=== PATIENT | male | born 1955 | race Hispanic/Latino ===

== ENCOUNTER 2022-01-19 06:22 | Day surgery (SDC) | payer OTHER ==
[2022-01-19] MEDS ORDERED: Ringers Lactate 1,000 ML IV ONE (06:40)
[2022-01-19] MEDS ORDERED: LIDOCAINE 1% MPF 2 ML AMPULE ONE (07:32)
[2022-01-19] MEDS ORDERED: propofoL 200 MG/20 ML VIAL IV ONE (07:32)
--- NOTE | 2022-01-19 08:03 | ENDO RPT ---
[address], [address] COLONOSCOPY PROCEDURE REPORT EXAM DATE: 01/19/2022 PATIENT NAME: Lamar Hinton MR #: [id number] BIRTHDATE: 1955 ATTENDING: Fabio Poole MD STATUS: outpatient MANAGER COUNCIL: Brando Santizo CST and Marybel Shaikh RN INDICATIONS: The patient is a 66 yr old Male here for a colonoscopy due to personal history of colon polyps PROCEDURE PERFORMED: Colonoscopy with biopsy - cold polypectomy MEDICATIONS: Per Anesthesia. ESTIMATED BLOOD LOSS: None CONSENT: The patient understands the risks and benefits of the procedure and understands that these risks include, but are not limited to: sedation, allergic reaction, infection, perforation and/or bleeding. Alternative means of evaluation and treatment include, among others: physical exam, x-rays, and/or surgical intervention. The patient elects to proceed with this endoscopic procedure. DESCRIPTION OF PROCEDURE: During intra-op preparation period all mechanical medical equipment was checked for proper function. Hand hygiene and appropriate measures for infection prevention was taken. Procedure, possible complications, alternatives including, but not limited to possibility of bleeding, perforation, tear, infection, sepsis, need for surgery, need for blood transfusion, were explained to the patient. After the risks, benefits and alternatives of the procedure were thoroughly explained, Informed consent was verified, confirmed and timeout was successfully executed by the treatment team. The patient was placed in the left lateral position. A digital rectal exam was performed and revealed external hemorrhoids. After appropriate level of anesthesia, the scope was passed. The EC-[id number] ([id number]) endoscope was introduced through the anus and advanced to the cecum, which was identified by transillumination from the light source, the appendix, and the ileocecal valve. The quality of the prep was good. The instrument was then slowly withdrawn as the colon was fully examined. Scope withdrawal time was . COLON FINDINGS: Small internal and external hemorrhoids were found. A sessile polyp was found at approximately 90 cm from anal verge less than 0.3 cm in size. Retroflexed views revealed no abnormalities. The scope was then completely withdrawn from the patient and the procedure terminated. ADVERSE EVENTS: There were no complications. IMPRESSIONS: 1. Small internal and external hemorrhoids 2. Sessile polyp was found RECOMMENDATIONS: 1. await biopsy results 2. follow-up: office 1 week(s) RECALL: for Colonoscopy, pending biopsy results. Fabio Poole MD eSigned: Fabio Poole MD 01/19/2022 8:02 AM cc: Frances Vásquez CPT CODES: ICD9 CODES: PATIENT NAME: Lamar Hinton MR#: [id number]
[2022-01-19 09:04] VITALS: BP 95/56; TEMP 96.9; O2SAT 96
== END 2022-01-19 08:57 | disposition home or self-care (01) ==
LOC: OR 06:22
PROVIDERS: ATTEND Surgery
PROC: 0DBK8ZX Excision of Ascending Colon, Via Natural or Artificial Opening Endoscopic, Diagnostic (ICD-10-PCS; principal; 2022-01-19 07:30)
DX: Z86.010 Personal history of colon polyps (principal); Z20.822 Contact with and (suspected) exposure to COVID-19; D12.2 Benign neoplasm of ascending colon; K64.4 Residual hemorrhoidal skin tags; K64.8 Other hemorrhoids; I10 Essential (primary) hypertension; I48.91 Unspecified atrial fibrillation
CPT/HCPCS: 88305; 45380; U0003; J2704; J7120

== ENCOUNTER 2023-04-26 09:18 | Observation (INO) | payer OTHER ==
[2023-04-20 14:08] LABS: Hematocrit 45.9 % (39.6-49.0); MCV 91.7 fL (80-100); MPV 8.3 fL (7.6-11.3); Platelets 266 thou/uL (152-406)
[2023-04-20 14:10] LABS: Protime INR 1.2
[2023-04-20 14:11] LABS: Potassium 4.2 mEq/L (3.5-5.1)
--- NOTE | 2023-04-20 14:14 | RAD REPORT ---
EXAM DESCRIPTION: Wai Horton (2 Views)04/20/2023 1:46 pm CLINICAL HISTORY: Preop for knee arthroplasty. Hypertension COMPARISON: 2013 FINDINGS: The lungs appear clear of acute infiltrate. The heart is normal size IMPRESSION: No acute abnormalities displayed
[2023-04-26] MEDS ORDERED: CEFAZOLIN SODIUM 2 GM/VIAL ONE (09:49)
[2023-04-26] MEDS ORDERED: CELECOXIB 100 MG CAPSULE ONE (09:49)
[2023-04-26] MEDS ORDERED: GABAPENTIN 100 MG CAP ONE (09:50)
[2023-04-26] MEDS ORDERED: Oxycodone HCl/Acetaminophen 1 TAB TAB ONE (09:50)
[2023-04-26] MEDS ORDERED: ACETAMINOPHEN 500 MG TAB ONE (09:51)
[2023-04-26] MEDS ORDERED: Ringers Lactate 1,000 ML IV ONE (09:51)
[2023-04-26] MEDS ORDERED: LIDOCAINE 1% MPF 5 ML VIAL ONE (10:25)
[2023-04-26] MEDS ORDERED: EPINEPHRINE/PF 1 MG/ML AMP ONE (10:25)
[2023-04-26] MEDS ORDERED: BUPIVACAINE 0.25% PF 30 ML VIAL ONE (10:25)
[2023-04-26] MEDS ORDERED: MIDAZOLAM HCL 2 MG/2 ML INJ ONE (10:25)
[2023-04-26] MEDS ORDERED: dexAMETHasone 10 MG/ML VIAL ONE ×2 (10:25→12:03)
[2023-04-26] MEDS ORDERED: FENTANYL CITR 100 MCG/2 ML ONE (10:25)
[2023-04-26] MEDS ORDERED: TRANEXAMIC ACID 1,000 MG/10 ML VIAL IV ONE (11:15)
[2023-04-26] MEDS ORDERED: DEXMEDETOMIDINE HCL 200 MCG/2 ML VIAL ONE (11:59)
[2023-04-26] MEDS ORDERED: MAGNESIUM SULFATE 1 gm IVPB 1 GM/100 ML BAG IV ONE (12:00)
[2023-04-26] MEDS ORDERED: propofoL 200 MG/20 ML VIAL IV ONE (12:02)
[2023-04-26] MEDS ORDERED: KETOROLAC 30 MG/ML INJ ONE (12:03)
[2023-04-26] MEDS ORDERED: LIDOCAINE 2% MPF 5 ML VIAL ONE ×2 (12:03→12:21)
[2023-04-26] MEDS ORDERED: ONDANSETRON 4 MG/2 ML VIAL ONE (12:03)
[2023-04-26] MEDS ORDERED: NS 0.9% VIAL 20 ML ONE (12:18)
[2023-04-26] MEDS ORDERED: KETAMINE HCL IN 0.9 % NACL 50 MG/5 ML SYRINGE IV ONE (12:21)
[2023-04-26] MEDS: BUPIVACAINE 0.5% PF 10 ML VIAL ONE ×2 (12:44→13:50)
[2023-04-26] MEDS ORDERED: NS 0.9% VIAL 10 ML ONE ×3 (12:50→14:13)
[2023-04-26] MEDS ORDERED: Phenylephrine HCl 10 MG/ML 1 ML VIAL ONE (14:11)
--- NOTE | 2023-04-26 14:36 | P.BOP ---
Preoperative diagnosis: right knee osteoarthritis Postoperative diagnosis: same Primary procedure: right total knee arthroplasty Van Owner Operator: NONE,NONE Estimated blood loss: 50 cc Specimen: right knee bone remnants Findings: see dictation Anesthesia: General Complications: None Implants: Biomet Yelitza Persona 11 CR femur, H tibia, 10 CR poly, 32 patella Fluids & blood products: per anesthesia record; TT: 90 mins @ 300 mmHg Transferred to: Recovery Room Condition: Good
[2023-04-26] MEDS ORDERED: ACETAMINOPHEN 325 MG TABLET PO PRN (14:37)
[2023-04-26] MEDS ORDERED: ONDANSETRON 4 MG/2 ML VIAL IV PRN (14:37)
[2023-04-26] MEDS ORDERED: DOCUSATE NA 100 MG CAP PO PRN (14:37)
[2023-04-26] MEDS ORDERED: TRAMADOL HCL 50 MG TAB PO PRN (14:45)
[2023-04-26] MEDS ORDERED: HYDROMORPHONE HCL 1 MG/ML INJ ONE (15:08)
[2023-04-26 15:22] LABS: Hematocrit 44.4 % (39.6-49.0)
[2023-04-26 16:00] VITALS: O2SAT 100
--- NOTE | 2023-04-26 16:07 | RAD REPORT ---
EXAM DESCRIPTION: RAD - Knee Right 2 View - 04/26/2023 3:26 pm CLINICAL HISTORY: Right knee surgery FINDINGS: Postoperative changes right knee arthroplasty. The prosthesis is in good position. No fracture or dislocation
[2023-04-26 16:22] VITALS: BMI 31.1
[2023-04-26] MEDS: CEFAZOLIN SODIUM 2 GM in NA CHLORIDE 0.9% 100 ML IVPB SCH (16:43)
--- NOTE | 2023-04-26 16:55 | P.CNS ---
Allergies No Known Allergies Allergy (Verified 04/20/23 13:15) Home Medications: Amlodipine Besylate/Benazepril [Lotrel 10-40 mg Capsule] 1 each PO DAILY 01/17/22 Apixaban [Eliquis] 5 mg PO BID 01/17/22 Lactobacillus Acidophilus [Probiotic] 1 each PO DAILY 01/17/22 Metoprolol Succinate [Toprol Xl] 50 mg PO BID 01/17/22 Simvastatin 10 mg PO DAILY 01/17/22 Cetirizine HCl [Zyrtec] 10 mg PO DAILY 04/20/23 Flaxseed Oil 1,000 mg PO DAILY 04/20/23 Magnesium [Magnesium Gluconate] 200 mg PO DAILY 04/20/23 Multivit-Min/FA/Lycopen/Lutein [Centrum Silver Tablet] 1 each PO DAILY 04/20/23 - Past Medical/Surgical History Diabetic: No -: atrial fibrillation -: hypertension -: arthritis -: left knee arthroplasty -: cholecystectomy -: left apa 2001 - Family History Father Medical History: Heart disease, Cancer, Other (see notes) Notes: colon cancer, prostate cancer Mother Medical History: Other (see notes) Notes: glaucoma - Social History Alcohol use: No CD- Drugs: No Caffeine use: No Place of Residence: Home Physical Examination Temp Pulse Resp BP Pulse Ox 97.6 F 78 16 103/64 97 04/26/23 16:00 04/26/23 16:00 04/26/23 16:00 04/26/23 16:00 04/26/23 16:00 Laboratory Data (last 24 hrs) 04/26/23 15:16 Hgb 14.9 Hct 44.4
[2023-04-26 17:40] LABS: Phosphorus 3.8 mg/dL (2.5-4.9)
[2023-04-26 17:41] LABS: Magnesium 2.3 mg/dL (1.6-2.4)
[2023-04-26] MEDS: SOTALOL HCL 80 MG TAB PO SCH ×2 (18:00→18:03)
--- NOTE | 2023-04-26 18:52 | CON ---
Date of Consultation: 04/26/2023 Reason For Consultation: Atrial fibrillation. History Of Present Illness: This is a 67-year-old male with history of atrial fibrillation, hyperten claudia, severe osteoarthritis, status post right total knee replacement. I saw him in the office olayinka perez and he has been having multiple episodes with rapid ventricular response and we planned to initia te sotalol on him. Denies having any chest pain or shortness of breath. Past Medical History: As outlined above in the HPI. Medications: Refer to reconciliation sheet for detailed list. Allergies: NO KNOWN DRUG ALLERGIES. Family History: No premature coronary artery disease or cancer. Social History: Does not smoke or drink. Does not use any drugs. Review of Systems: All systems were reviewed. They were negative except what mentioned in HPI. Physical Examination: Vital signs: Reviewed. Head and Neck: Pupils are equal, reactive to light. Intact eye movements. No JVD. No cervical lym phadenopathy. Neck is supple. Thyroid is not enlarged. Lungs: Clear to auscultation bilaterally. No rhonchi, wheezing, or crackles. No accessory muscle u se. Heart: Irregularly irregular. No extra sounds. Abdomen: Soft, nontender. Bowel sounds positive. No organomegaly. No masses or hernia. No rigidi ty or rebound. Extremities: No edema, clubbing, or cyanosis. Intact pulses. Skin: No rash. No nodule. Neurological: Alert, awake, oriented x3. No acute focal deficits appreciated. Investigations: Labs were reviewed. Assessment And Recommendations: 1.Atrial fibrillation. Start sotalol 80 mg twice a day, start now, after the third dose to get an E KG. If no QTc abnormalities, to be continued on this dose. 2.Dyslipidemia. Continue statin. 3.Hypertension. Blood pressure is controlled. 4.For stroke prevention, he will continue on Eliquis. SR/MODL Voice ID: [id number] Report ID: [id number]
--- NOTE | 2023-04-26 20:10 | P.HP ---
Certification for Inpatient Patient admitted to: Observation With expected LOS: <2 Midnights Patient will require the following post-hospital care: None Practitioner: I am a practitioner with admitting privileges, knowledge of patient current condition, hospital course, and medical plan of care. Services: Services provided to patient in accordance with Admission requirements found in Title 42 Section 412.3 of the Code of Federal Regulations Patient History Date of Service: 04/26/23 Reason for admission: Right knee osteoarthritis. History of Present Illness: Patient is a 67-year-old male with a past medical history significant for A-fib, hypertension, osteoarthritis, hyperlipidemia who presents for a planned procedure with his orthopedic surgeon--right total knee replacement. Patient had a left knee replacement a couple of years ago. Patient reported that he has been having pain in his right knee for quite some time now. Patient reported that he has not been taking any pain medication but has been managing his pain with non-pharmacological techniques. Patient presented to the hospital and had a right knee replacement. Patient tolerated procedure. Patient resting in bed comfortably. Allergies No Known Allergies Allergy (Verified 04/20/23 13:15) Home Medications: Amlodipine Besylate/Benazepril [Lotrel 10-40 mg Capsule] 1 each PO DAILY 01/17/22 Apixaban [Eliquis] 5 mg PO BID 01/17/22 Lactobacillus Acidophilus [Probiotic] 1 each PO DAILY 01/17/22 Metoprolol Succinate [Toprol Xl] 50 mg PO BID 01/17/22 Simvastatin 10 mg PO DAILY 01/17/22 Cetirizine HCl [Zyrtec] 10 mg PO DAILY 04/20/23 Flaxseed Oil 1,000 mg PO DAILY 04/20/23 Magnesium [Magnesium Gluconate] 200 mg PO DAILY 04/20/23 Multivit-Min/FA/Lycopen/Lutein [Centrum Silver Tablet] 1 each PO DAILY 04/20/23 - Past Medical/Surgical History Has patient received pneumonia vaccine in the past: Yes Diabetic: No -: atrial fibrillation -: hypertension -: arthritis -: left knee arthroplasty -: cholecystectomy -: left apa 2001 - Family History Father -: Heart disease, Cancer, Other (see notes) Notes: colon cancer, prostate cancer Mother -: Other (see notes) Notes: glaucoma - Social History Smoking Status: Never smoker Alcohol use: No CD- Drugs: No Caffeine use: No Place of Residence: Home Review of Systems General: Unremarkable Eyes: Unremarkable ENT: Unremarkable Respiratory: Unremarkable Cardiovascular: Unremarkable Gastrointestinal: Unremarkable Genitourinary: Unremarkable Musculoskeletal: Other (Right knee pain ) Integumentary: Unremarkable Neurological: Unremarkable Lymphatics: Unremarkable Physical Examination - Vital Signs Temperature: 97.6 F Blood Pressure: 103/64 Pulse: 78 Respirations: 16 Pulse Ox (%): 97 - Physical Exam General: Alert, In no apparent distress, Oriented x3, Cooperative HEENT: Atraumatic, PERRLA, Mucous membr. moist/pink, EOMI, Sclerae nonicteric Neck: Supple, 2+ carotid pulse no bruit, No LAD, Without JVD or thyroid abnormality Respiratory: Clear to auscultation bilaterally, Normal air movement Cardiovascular: No edema, Regular rate/rhythm, Normal S1 S2 Capillary refill: <2 Seconds Gastrointestinal: Normal bowel sounds, Soft and benign, No tenderness Musculoskeletal: No clubbing, No tenderness Integumentary: No rashes, Other (Right knee incision ) Neurological: Normal speech, Normal tone, Normal affect Lymphatics: No axilla or inguinal lymphadenopathy - Studies Laboratory Data (last 24 hrs) 04/26/23 04/26/23 17:07 15:16 Hgb 14.9 Hct 44.4 Phosphorus 3.8 Magnesium 2.3 Assessment and Plan - Plan --Right knee osteoarthritis. Status post right total knee replacement. Orthopedic surgeon on board. We will await further recommendations from surgeon. --Acute pain\osteoarthritis. We will manage pain with current medication regimen. --Atrial fibrillation. Cardiology consulted for management of A-fib. Patient started on sotalol by home care rn. Continue Eliquis in AM. --Hypertension. Stable. Continue home medication. --Hyperlipidemia. Continue statin. --CKD 2. Baseline functions unknown. We will continue to monitor renal functions. --DVT prophylaxis with SCDs. Discharge Plan: Home Plan to discharge in: 48 Hours - Advance Directives Does patient have a Living Will: No Does patient have a Durable POA for Healthcare: No - Code Status/Comfort Care Code Status Assessed: Yes Physician Review: Patient Assessed, Agree with Above Assessment and Plan Critical Care: No
[2023-04-26] MEDS ORDERED: METOPROLOL XL 50 MG TAB PO SCH (21:00)
--- NOTE | 2023-04-26 21:24 | P.OP ---
Preoperative diagnosis: right knee osteoarthritis Postoperative diagnosis: same Primary procedure: right total knee arthroplasty Anesthesia: general Estimated blood loss: 50 cc Specimen: right knee bone remnants Findings: see dictation Operative Technique: Indication For Procedure: Patient is a 67 year-old male presenting to my clinic with signs, symptoms and x-ray findings consistent with severe right knee osteoarthritis. I discussed with the patient at length risks and benefits associated with operative and nonoperative treatment. He had failed conservative treatment measures and had significant difficulties with ADLs secondary to his pain. We discussed operative treatment and elected to proceed with right total knee arthroplasty. He expressed understanding and elected to proceed with operative treatment. Description Of Procedure: After informed consent was obtained, the patient was identified in the preoperative holding area. The right lower extremity was marked. The patient was then taken to the PACU where he underwent a right lower extremity adductor canal block performed by Anesthesia. He was then taken to the operating room, transferred to the operating table in supine fashion, and placed under general anesthesia. The right lower extremity was then prepped and draped in usual sterile fashion. A time-out was initiated. The correct patient and procedure were confirmed and identified. The patient did receive his preoperative prophylactic antibiotics. The right lower extremity was then exsanguinated and tourniquet was inflated to 300 mmHg. Approximately 15 cm longitudinal incision was made centered over the anterior aspect of the right knee. Dissection was then taken to the extensor mechanism and a medial parapatellar arthrotomy was performed. The patella was everted and dislocated laterally and the knee was flexed in the fat pad. Medial and lateral meniscus and ACL were all excised exposing the distal femur. Excess hypertrophic synovium was also excised within the suprapatellar pouch. The patient had an MRI of his right knee preoperatively for surgical planning and creation of cutting blocks. The cutting block was then placed over the distal femur and pins were then placed. The distal femoral cutting block was then placed over the pins. An armando wing was then used to ensure proper depth cut and the distal femur was then cut. The chamfer cutting guide was then placed over the distal end of the femur. Anterior, posterior cuts as well as anterior and posterior chamfer cuts were then made again confirming proper depth of the cut using an Armando wing. Excess bone remnants were then sent to pathology for further evaluation. Next, attention was taken to the proximal tibia. A tibial jig and tibial cutting block was then placed on proximal aspect of the right tibia and locked into position. Pins were then placed and alignment guide was then used to confirm proper alignment of the cut and then coronal and sagittal planes. Once this was confirmed, the cutting jig was placed over the pins and the proximal tibia was cut. Sizing trays were then selected and size 10 mm spacer was used and there was good overall balance in flexion and extension. Next, the trial implants were then placed using the size 11 standard CR femur and a size H tibia and an 10 mm CR poly. There was overall good range of motion and good stability. The trial implants were then removed. The wound was then irrigated thoroughly with normal saline and the knee was then injected with 30 cc of 0.5% Marcaine both in the posterior capsule and medial and lateral gutters as well as quadriceps tendon and periosteum. The tibia was then punched. The femur was drilled. The cement was then prepared on the back table. Cement was then placed first on the tibial surface followed by size H tibia. Excess cement was removed with [place] elevators. Size 11 standard CR femur was then placed on the distal femur after cement was placed on the distal femur. Excess cement was then removed and a size 10 mm CR trial poly was then placed. The knee was held in extension as the cement hardened. Undersurface of the patella was prepared debriding osteophytes using rongeurs as well as osteophytes.. Cement was placed on the undersurface of the patella after it was cut and a size 32 patella was placed. Once the cement was hardened, the knee was ranged, there was good overall stability both in flexion, extension and as well as stability with varus and valgus stresses. Trial poly was then removed and a size 10 mm CR poly was then placed and locked into position. The knee was then ranged again. There was good overall range of motion both for flexion and extension with good stability. The wound was then irrigated again thoroughly with normal saline using pulse lavage. Tourniquet was let down. Hemostasis was achieved using Bovie electrocautery. Extensor mechanism was then approximated using a #1 Vicryl both in interrupted and running fashion. The fascia was then approximated using 0 Vicryl. Subcutaneous tissue was approximated with a 2-0 Vicryl. Skin was approximated using grace. Sterile dressings were applied. The patient was awakened and transferred to PACU in stable condition. Complications: None Implants: Biomet Yelitza Persona 11 CR femur, H tibia, 10 CR poly, 32 patella Fluids & blood products: per anesthesia record; TT: 90 mins @ 300 mmHg Transferred to: Recovery Room Condition: Good
[2023-04-26] MEDS: HYDROCODONE/APAP 7.5/325 MG TAB PO PRN (23:04)
[2023-04-27] MEDS: CEFAZOLIN SODIUM 2 GM in NA CHLORIDE 0.9% 100 ML IVPB SCH ×2 (01:00→08:21)
[2023-04-27 02:26] LABS: Urine Bacteria None Seen /HPF (<20); Urine Bilirubin NEGATIVE (Negative); Urine Blood Negative (Negative); Urine Clarity Clear (Clear); Urine Color Light-Yellow (Yellow); Urine Glucose NEGATIVE (Negative); Urine Protein NEGATIVE (Negative); Urine RBC None Seen /HPF (None Seen); Urine Urobilinogen Normal (Normal); Urine pH 5.5 (5.0-7.0)
[2023-04-27] MEDS: SOTALOL HCL 80 MG TAB PO SCH ×2 (05:49→17:08)
[2023-04-27 06:55] LABS: Hematocrit 42.3 % (39.6-49.0); Lymphocytes % 6.4 % (15.3-44.8); MCV 91.4 fL (80-100); Platelets 245 thou/uL (152-406); RBC Red Blood Cell Count 4.63 M/uL (4.33-5.43)
[2023-04-27 07:24] LABS: Magnesium 2.2 mg/dL (1.6-2.4); Phosphorus 3.9 mg/dL (2.5-4.9); Potassium 4.1 mEq/L (3.5-5.1)
[2023-04-27] MEDS ORDERED: MULTIVIT W/ MINERAL TAB PO SCH (08:00)
[2023-04-27] MEDS ORDERED: LACTOBACILLUS/ACIDOPHILUS TAB PO SCH (08:00)
[2023-04-27] MEDS: HYDROCODONE/APAP 7.5/325 MG TAB PO PRN ×2 (08:20→14:35)
[2023-04-27] MEDS ORDERED: AMLODIPINE 10 MG TAB PO SCH (09:00)
[2023-04-27] MEDS ORDERED: BENAZEPRIL 20 MG TAB PO SCH (09:00)
[2023-04-27] MEDS ORDERED: CETIRIZINE HCL 5 MG TABLET PO SCH (09:00)
[2023-04-27] MEDS ORDERED: APIXABAN 5 MG TABLET PO SCH (09:00)
[2023-04-27] MEDS ORDERED: HOME MED 1 EA UNK (Magnesium [Magnesium Gluconate] 200 MG Tablet) PO SCH (09:00)
[2023-04-27] MEDS ORDERED: HOME MED 1 EA UNK (Simvastatin [Simvastatin] 10 MG Tablet) PO SCH (09:00)
[2023-04-27] MEDS ORDERED: HOME MED 1 EA UNK (Lactobacillus Acidophilus [Probiotic] Capsule) PO SCH (09:00)
[2023-04-27] MEDS ORDERED: AMLODIPINE BESYLATE PO SCH (09:00)
[2023-04-27] MEDS ORDERED: HOME MED 1 EA UNK (Cetirizine Hcl [Zyrtec] 10 MG Tablet) PO SCH (09:00)
[2023-04-27] MEDS ORDERED: BENAZEPRIL PO SCH (09:00)
[2023-04-27] MEDS ORDERED: ATORVASTATIN 10 MG TAB PO SCH (09:00)
[2023-04-27 12:14] VITALS: BP 127/78; TEMP 97.9
--- NOTE | 2023-04-27 16:13 | P.PN ---
Subjective Date of Service: 04/27/23 Chief Complaint: s/p R TKA Subjective: Working w/ PT pain controlled Physical Examination - Vital Signs Temperature: 97.9 F Blood Pressure: 127/78 Pulse: 89 Respirations: 16 Pulse Ox (%): 96 - Physical Exam General: Alert, In no apparent distress Musculoskeletal: Other (RLE: Dressing clean dry and intact; neurovascular intact distally) - Studies Laboratory Data (last 24 hrs) 04/27/23 04/27/23 04/26/23 06:30 06:30 17:07 WBC 16.30 H Hgb 14.2 Hct 42.3 Plt Count 245 Sodium 134 L Potassium 4.1 BUN 16 Creatinine 1.03 Glucose 134 H Phosphorus 3.9 3.8 Magnesium 2.2 2.3 Triglycerides 50 Cholesterol 131 HDL Cholesterol 50 Cholesterol/HDL Ratio 2.62 Assessment And Plan - Plan Cresencio is an 67-year-old male status post right total knee arthroplasty postop day #1 -Continue to mobilize with PT; weightbearing as tolerated right lower extremity -DVT prophylaxis: On Eliquis for A-fib -Patient currently getting started on sotalol by cardiology; okay for discharge from Ortho standpoint once cleared by cardiology -Follow-up in 2 weeks for staple removal
--- NOTE | 2023-04-27 19:37 | PN ---
Date of Progress Note: 04/27/2023 Subjective: Seen by bedside. Doing well, on sotalol, appears to be atrial fibrillation, but heart r ate is controlled. Review of Systems: No chest pain, shortness of breath, orthopnea, or cough. No nausea, vomiting, or diarrhea. All othe r systems were reviewed, they were negative. Objective: Vital Signs: Reviewed. Head and Neck: Pupils are equal, reactive to light. Intact eye movements. No JVD. No cervical lym phadenopathy. Neck is supple. Thyroid is not enlarged. Lungs: Clear to auscultation bilaterally. No rhonchi, wheezing, or crackles. No accessory muscle u se. Heart: Irregularly irregular. No extra sounds. Abdomen: Soft, nontender. Bowel sounds positive. No organomegaly. No masses or hernia. No rigidi ty or rebound. Extremities: No edema, clubbing, or cyanosis. Intact pulses. Skin: No rash. No nodule. Neurologic: Alert, awake, oriented x3. No acute focal deficits appreciated. Investigations: BUN 16, creatinine 1.03, and hemoglobin 14.2. Assessment And Recommendations: 1.Atrial fibrillation. Continue sotalol 80 mg b.i.d. After third dose, check EKG. If QTc interval was normal, patient can be released on sotalol and oral anticoagulant the Eliquis he is taking and t o see me in the office in 2 weeks and if he continues to be in atrial fibrillation at that time, we w ill do cardioversion. 2.Severe osteoarthritis, status post total knee replacement and he is on Eliquis, which will protect him from deep venous thrombosis. SR/MODL Voice ID: [id number] Report ID: [id number]
--- NOTE | 2023-04-28 08:15 | P.DS ---
Admission Date: 04/26/23 Discharge Date: 04/27/23 Disposition: [place] [facility]/HOME HEALTH CARE Discharge Condition: GOOD Reason for Admission: s/p R TKA Consultations: Cardiology - Dr. Williamson Ortho - Dr. Bowden Brief History of Present Illness: 67yo M, PMH: A-fib, hypertension, osteoarthritis, hyperlipidemia Patient presents for a planned procedure with his orthopedic surgeon--right total knee replacement. Patient had a left knee replacement a couple of years ago. Patient reported that he has been having pain in his right knee for quite some time now. Patient reported that he has not been taking any pain medication but has been managing his pain with non-pharmacological techniques. Patient presented to the hospital and had a right knee replacement. Patient tolerated procedure. Patient resting in bed comfortably. Hospital Course: Problem List Right knee osteoarthritis now s/p total right knee replacement 04/26 Atrial - Fibrillation, chronic Hypertension Hyperlipidemia CKD 2 Patient underwent successful total right knee replacement on 04/26 for right knee osteoarthritis by Dr. Bowden. He noted to be in afib with RVR. Cardiology, Dr. Williamson was consulted, and recommended initiating treatment with sotalol 80mg BID. Patient received his first dose post-op on evening of 04/26. He remained in afib but with better rate control, mostly in 70-80s, occasionally in 90s. Otherwise he was doing well post-operatively from his surgery and cleared for discharge from ortho perspective. He received 3 doses of sotalol. EKG was performed and noted a normal QTc interval. He was deemed stable for discharge home with home health, with new prescription for Sotalol 80mg twilce daily. Patient is to stop taking his metoprolol and take sotalol in its place. Patients blood pressure was noted to be borderline low to low-normal throughout hospitalization. Advised to check BP daily. Blood pressure remained in normal range post-operatively and his amlodipine- benazepril was held. Recommend to hold this medication until blood pressure consistently >140 systolic If blood pressure remains low, consider discussing further with Cardiology / PCP in office about possibly lowering dose / adjusting his long-term anti- hypertensives. Since his last dose adjustment, patient reports significant lifestyle changes with weight loss and cutting out alcohol. Medication: New: sotalol 80mg twice daily pain medication per Dr. Bowden continue eliquis as previously prescribed Stop: Metoprolol Follow up: PCP 3-[address] Kal Dhillon in 2 weeks for staple removal Cardiology in 1-2 weeks Physical Exam: GEN: Alert, oriented, NAD HEENT: Normal conjunctiva, sclera anicteric CV: Regular rate and rhythm, no edema Pulm: Nonlabored respirations on room air ABD: Soft, nontender, nondistended MSK: Dressing in place c/d/i Neuro: Normal speech, normal affect Vital Signs/Physical Exam: Temp Pulse Resp BP Pulse Ox 97.9 F 89 16 127/78 96 04/27/23 16:12 04/27/23 16:12 04/27/23 16:12 04/27/23 16:12 04/27/23 16:12 Laboratory Data at Discharge: WBC 16.30 thou/uL (4.3-10.9) H 04/27/23 06:30 Hgb 14.2 g/dL (13.6-17.9) 04/27/23 06:30 Hct 42.3 % (39.6-49.0) 04/27/23 06:30 Plt Count 245 thou/uL (152-406) 04/27/23 06:30 PT 13.2 SECONDS (9.5-12.5) H 04/20/23 13:30 INR 1.20 04/20/23 13:30 APTT 33.2 SECONDS (24.3-36.9) 04/20/23 13:30 Sodium 134 mEq/L (136-145) L 04/27/23 06:30 Potassium 4.1 mEq/L (3.5-5.1) 04/27/23 06:30 BUN 16 mg/dL (7-18) 04/27/23 06:30 Creatinine 1.03 mg/dL (0.70-1.30) 04/27/23 06:30 Glucose 134 mg/dL (74-106) H 04/27/23 06:30 Phosphorus 3.9 mg/dL (2.5-4.9) 04/27/23 06:30 Magnesium 2.2 mg/dL (1.6-2.4) 04/27/23 06:30 Triglycerides 50 mg/dL (<150) 04/27/23 06:30 Cholesterol 131 mg/dL (<200) 04/27/23 06:30 HDL Cholesterol 50 mg/dL (40-60) 04/27/23 06:30 Cholesterol/HDL Ratio 2.62 04/27/23 06:30 Home Medications: Amlodipine Besylate/Benazepril [Lotrel 10-40 mg Capsule] 1 each PO DAILY 01/17/22 Apixaban [Eliquis] 5 mg PO BID 01/17/22 Lactobacillus Acidophilus [Probiotic] 1 each PO DAILY 01/17/22 Simvastatin 10 mg PO DAILY 01/17/22 Cetirizine HCl [Zyrtec] 10 mg PO DAILY 04/20/23 Flaxseed Oil 1,000 mg PO DAILY 04/20/23 Magnesium [Magnesium Gluconate] 200 mg PO DAILY 04/20/23 Multivit-Min/FA/Lycopen/Lutein [Centrum Silver Tablet] 1 each PO DAILY 04/20/23 Sotalol HCl [Betapace*] 80 mg PO BID 30 Days #60 tab 04/27/23 New Medications: Sotalol HCl [Betapace*] 80 mg PO BID 30 Days #60 tab Physician Discharge Instructions: Patient underwent successful total right knee replacement on 04/26 for right knee osteoarthritis by Dr. Bowden. He noted to be in afib with RVR. Cardiology, Dr. Williamson was consulted, and recommended initiating treatment with sotalol 80mg BID. Patient received his first dose post-op on evening of 04/26. He remained in afib but with better rate control, mostly in 70-80s, occasionally in 90s. Otherwise he was doing well post-operatively from his surgery and cleared for discharge from ortho perspective. He received 3 doses of sotalol. EKG was performed and noted a normal QTc interval. He was deemed stable for discharge home with home health, with new prescription for Sotalol 80mg twilce daily. Patient is to stop taking his metoprolol and take sotalol in its place. Patients blood pressure was noted to be borderline low to low-normal throughout hospitalization. Advised to check BP daily. Blood pressure remained in normal range post-operatively and his amlodipine- benazepril was held. Recommend to hold this medication until blood pressure consistently >140 systolic If blood pressure remains low, consider discussing further with Cardiology / PCP in office about possibly lowering dose / adjusting his long-term anti- hypertensives. Since his last dose adjustment, patient reports significant lifestyle changes with weight loss and cutting out alcohol. Medication: New: sotalol 80mg twice daily pain medication per Dr. Bowden continue eliquis as previously prescribed Stop: Metoprolol Follow up: PCP 3-[address] Kal Dhillon in 2 weeks for staple removal Cardiology in 1-2 weeks Activity: Weight bearing as tolerated Followup: Kacey Vásquez, HEATHER [Primary Care Provider] - Time spent managing pt's care (in minutes): 45
== END 2023-04-27 18:33 | disposition home health service (06) ==
LOC: OR 09:18 → 4TH 15:25
PROVIDERS: ADMIT Orthopaedic Surgery Sports Medicine; ATTEND Hospitalist
PROC: 0SRC069 Replacement of Right Knee Joint with Oxidized Zirconium on Polyethylene Synthetic Substitute, Cemented, Open Approach (ICD-10-PCS; principal; 2023-04-26 11:30)
DX: M17.11 Unilateral primary osteoarthritis, right knee (principal); I48.11 Longstanding persistent atrial fibrillation; N18.2 Chronic kidney disease, stage 2 (mild); M25.561 Pain in right knee; I10 Essential (primary) hypertension; E78.5 Hyperlipidemia, unspecified; Z82.49 Family history of ischemic heart disease and other diseases of the circulatory system; Z79.01 Long term (current) use of anticoagulants; Z80.0 Family history of malignant neoplasm of digestive organs; Z80.42 Family history of malignant neoplasm of prostate
CPT/HCPCS: 36415; 71046; 80048; 80061; 81001; 82947; 83735; 84100; 85014; 85018; 85025; 85610; 85730; 88304; 88311; 94010; 97110; 97116; 97139; 97161; 97530; A4216; G0378; J0171; J1100; J1170; J2001; J2250; J2371; J2405; J2704; J3010; J3475; J7120

== ENCOUNTER 2023-12-28 14:13 | Observation (INO) | payer OTHER ==
--- NOTE | 2023-12-28 14:50 | RAD REPORT ---
EXAM DESCRIPTION: CT - Ct Stroke Brain Wo Cont - 12/28/2023 2:38 pm CLINICAL HISTORY: STROKE ALERT Headache, drowsiness, CVA symptomology COMPARISON: No comparisons TECHNIQUE: All CT scans are performed using dose optimization technique as appropriate and may inclu de automated exposure control or mA/KV adjustment according to patient size. FINDINGS: No intracranial hemorrhage, hydrocephalus or extra-axial fluid collection.No areas of brai n edema or evidence of midline shift. The paranasal sinuses and mastoids are clear. The calvarium is intact. IMPRESSION: No acute intracranial abnormality. The findings were discussed with Dr. Miguel in the ER On 12/28/2023 at 2:45 p.m. by telephone.
[2023-12-28 14:54] LABS: Absolute Eosinophils 0.2 K/uL (0-0.5); Absolute Lymphocytes (CBC) 1.6 K/uL (0.7-4.9); Absolute Monocytes 0.6 K/uL (0.1-1.3); Absolute Neutrophil 3.5 K/uL (1.8-8.0); Basophils % 0.7 % (0-1.3); Eosinophils % 3.4 % (0-4.4); Hematocrit 42.7 % (39.6-49.0); Hemoglobin 14.4 g/dL (13.6-17.9); Lymphocytes % 27.5 % (15.3-44.8); MCH 30.8 pg (27.0-35.0); MCHC 33.7 g/dL (32.0-36.0); MCV 91.4 fL (80-100); MPV 7.8 fL (7.6-11.3); Monocytes % 10.6 % (3.3-12.3); Neutrophils % 57.8 % (41.7-73.7); Nucleated Red Blood Cells % 0.2 % (0-0); Platelets 237 thou/uL (152-406); RBC Red Blood Cell Count 4.68 M/uL (4.33-5.43); Red Cell Distribution Width 13.8 % (12.1-15.2)
[2023-12-28 14:56] LABS: PT Prothrombin Time 12.6 SECONDS (9.5-12.5); PTT, Activated Partial Thromb 35.2 SECONDS (24.3-36.9); Protime INR 1.15
--- NOTE | 2023-12-28 15:02 | RAD REPORT ---
EXAM DESCRIPTION: CT - Head angio - 12/28/2023 2:45 pm CLINICAL HISTORY: DIZZINESS Headache, drowsiness, CVA symptom COMPARISON: <Comparisons> TECHNIQUE: CT angiography of the head was performed with MIPs. All CT scans are performed using dose optimization technique as appropriate and may include automated exposure control or mA/KV adjustment according to patient size. FINDINGS: No evidence of large vessel occlusion. No evidence of aneurysm is detected. No flow-limiti ng stenosis or vascular malformation identified. Antegrade flow is seen in the vertebral arteries. Right vertebral artery is dominant. The visualized dural venous sinuses are patent. IMPRESSION: No significant flow abnormality is detected.
[2023-12-28 15:08] LABS: Albumin 4.1 g/dL (3.4-5.0); Albumin/Globulin Ratio 1.2 (1.1-1.8); Anion Gap 8.4 mEq/L (5.0-15.0); Bilirubin Direct 0.2 mg/dL (0-0.2); Bilirubin Indirect, Calculated 0.4 mg/dL (0.2-0.8); Bilirubin Total 0.6 mg/dL (0.2-1.0); Globulin 3.4 g/dL (2.3-3.5); Magnesium 2.3 mg/dL (1.6-2.4); Potassium 4.4 mEq/L (3.5-5.1); Protein, Total 7.5 g/dL (6.4-8.2); Troponin High Sensitivity 3.8 pg/mL (<58.9)
--- NOTE | 2023-12-28 15:08 | RAD REPORT ---
EXAM DESCRIPTION: CT - Neck Angio - 12/28/2023 2:45 pm CLINICAL HISTORY: stroke Headache, drowsiness, CVA symptomology COMPARISON: Ct Stroke Brain Wo Cont dated 12/28/2023No comparisons TECHNIQUE: CT angiography of the neck vessels was performed with MIPs. All CT scans are performed using dose optimization technique as appropriate and may include automated exposure control or mA/KV adjustment according to patient size. FINDINGS: A left aortic arch is identified with normal three vessel configuration of the great vesse ls. No significant flow abnormality is seen of the common carotid bilaterally. Mild hard plaquing is seen right carotid bulb. No significant carotid stenosis identified bilaterally . The right vertebral artery is dominant. Left vertebral artery is diminutive but demonstrates forward flow. Moderate midcervical degenerative changes are present. IMPRESSION: No significant flow abnormality of the neck vessels is identified. Mild hard plaque right carotid bulb. NASCET criteria used. Mild 0-49% stenosis Moderate 50-69% stenosis Severe 70-99% stenosis
--- NOTE | 2023-12-28 15:20 | RAD REPORT ---
EXAM DESCRIPTION: RAD - Chest Single View - 12/28/2023 3:09 pm CLINICAL HISTORY: stroke Chest pain. COMPARISON: Chest Pa And Lat (2 Views) dated 04/20/2023; CHEST PA AND LAT 2 VIEW dated 06/30/2014 FINDINGS: Portable technique limits examination quality. The lungs are grossly clear. The heart is normal in size. No displaced fractures. IMPRESSION: No acute intrathoracic process suspected.
--- NOTE | 2023-12-28 15:53 | EDPHYS ---
Physician Documentation [facility] Name: Lamar Hinton Age: 68 yrs Sex: Male : 1955 Arrival Date: 12/28/2023 Time: 14:13 Bed 5 Private MD: COLEEN WHITTINGTON ED Physician Jesus Miguel HPI: 12/27 14:34 This 68 yrs old Male presents to ER via Ambulatory with complaints of sb4 Dizziness, Blurred Vision. 14:34 sudden onset of dizziness, blurry vision, ataxia, weakness 30 min BUNDLE PERSON. symptoms have sb4 since mostly resolved. has history of afib on eliquis, which he reports compliance with. declines any slurred speech, difficulty swallowing, focal weakness, hearing deficits, facial droop. Historical: - Allergies: 14:31 No Known Allergies; db - Home Meds: 15:56 metoprolol tartrate 25 mg Oral tablet 1 tabs daily [Active]; benazepril 40 mg oral tl4 tablet 1 tab daily [Active]; simvastatin 10 mg Oral tablet 1 tab daily [Active]; sotalol 80 mg Oral tablet 1 tab 2 times per day [Active]; Eliquis 5 mg oral tablet 1 tab 2 times per day [Active]; magnesium oxide 200 mg magnesium Oral tablet 1 tab daily [Active]; Zyrtec 10 mg Oral tablet 1 tab daily [Active]; Centrum oral [Active]; - PMHx: 14:44 Hypertensive disorder; Atrial fibrillation; sb4 - PSHx: 14:31 BILAT KNEE REPLACEMENTS; db - Infectious Disease History:: Denies. - Social history:: Smoking status: Patient denies any tobacco usage or history of. ROS: 14:34 Constitutional: Negative for fever, chills, and weight loss, sb4 14:34 Eyes: Positive for blurry vision, 14:34 Neuro: Positive for dizziness, gait disturbance, 14:34 All other systems are negative, Exam: 14:34 Constitutional: This is a well developed, well nourished patient who is awake, alert, sb4 and in no acute distress. Head/Face: Normocephalic, atraumatic. Eyes: Extra-ocular motions intact. Periorbital areas with no swelling, redness, or edema. ENT: Mucous membranes moist. Cardiovascular: Regular rate and rhythm with a normal S1 and S2. Respiratory: Lungs have equal breath sounds bilaterally, clear to auscultation and percussion. No rales, rhonchi or wheezes noted. No increased work of breathing, no retractions or nasal flaring. Abdomen/GI: Soft, non-tender, no distension. Skin: Warm, dry with normal turgor. Normal color with no rashes, no lesions, and no evidence of cellulitis. MS/ Extremity: Pulses equal, no cyanosis. Neurovascular intact. Full, normal range of motion. Neuro: Awake and alert, GCS 15, oriented to person, place, time, and situation. Motor strength 5/5 in all extremities. Sensory grossly intact. 14:34 Neuro: Orientation: is normal, to person, place, time \T\ situation. Mentation: is normal, appropriate for stated age, Memory: is normal, appropriate for stated age, Cranial nerves: CN I not tested, visual cristina are intact. extraocular movements are intact, Facial palsy and sensory deficits are absent. no gross hearing deficit,. Nystagmus is absent. Speech is clear and appropriate. Vital Signs: 14:25 BP 139 / 97; Pulse 57; Resp 18; Temp 98.5(O); Pulse Ox 98% ; Weight 104.33 kg; Height 6 db ft. 0 in. ; 14:45 BP 131 / 79; Pulse 62; Resp 16; Pulse Ox 100% on R/A; Pain 0/10; tl4 15:00 BP 131 / 76; Pulse 59; Resp 21; Pulse Ox 99% on R/A; Pain 0/10; tl4 15:15 BP 122 / 79; Pulse 61; Resp 16; Pulse Ox 99% on R/A; tl4 15:30 BP 137 / 66; Pulse 58; Resp 16; Pulse Ox 97% on R/A; Pain 0/10; tl4 15:45 BP 128 / 68; Pulse 56; Resp 15; Pulse Ox 97% on R/A; tl4 16:00 BP 126 / 80; Pulse 56; Resp 15; Pulse Ox 97% on R/A; tl4 16:15 BP 124 / 74; Pulse 56; Resp 18; Pulse Ox 97% on R/A; Pain 0/10; tl4 16:30 BP 130 / 75; Pulse 56; Resp 17; Pulse Ox 98% on R/A; tl4 16:45 BP 128 / 79; Pulse 56; Resp 15; Pulse Ox 97% on R/A; tl4 17:00 BP 117 / 63; Pulse 57; Resp 17; Pulse Ox 98% on R/A; tl4 17:15 BP 119 / 64; Pulse 57; Resp 17; Pulse Ox 98% on R/A; tl4 17:30 BP 112 / 71; Pulse 57; Resp 17; Temp 98.3(O); Pulse Ox 96% on R/A; Pain 0/10; tl4 17:45 BP 122 / 79; Pulse 57; Resp 16; Pulse Ox 99% on R/A; Pain 0/10; tl4 18:00 BP 115 / 68; Pulse 55; Resp 18; Pulse Ox 97% on R/A; tl4 14:25 Body Mass Index 31.19 (104.33 kg, 182.88 cm) db 14:45 Pain Scale: Adult tl4 15:00 Pain Scale: Adult tl4 15:30 Pain Scale: Adult tl4 16:15 Pain Scale: Adult tl4 17:30 Pain Scale: Adult tl4 17:45 Pain Scale: Adult tl4 NIH Stroke Scale Scores: 14:49 NIHSS Score: 0 sb4 14:50 NIHSS Score: 1 tl4 15:00 NIHSS Score: 1 es3 17:00 NIHSS Score: 0 tl4 [place] Coma Score: 14:45 Eye Response: spontaneous(4). Motor Response: obeys commands(6). Verbal Response: tl4 oriented(5). Total: 15. 15:45 Eye Response: spontaneous(4). Motor Response: obeys commands(6). Verbal Response: tl4 oriented(5). Total: 15. MDM: 14:25 Patient medically screened. sb4 14:48 ED course: symptoms have resolved. patient is on eliquis. not a TNK candidate. sb4 15:50 Data reviewed: vital signs, nurses notes, lab test result(s), EKG, radiologic studies, sb4 I have discussed the patient's presentation/case with the attending Emergency Department Physician; and as a result, I will admit patient. Consideration of Admission/Observation Patient was admitted/placed on observation. Counseling: I had a detailed discussion with the patient and/or guardian regarding the historical points, exam findings, and any diagnostic results supporting the discharge/admit diagnosis, lab results, radiology results, the need for further work-up and treatment in the hospital. 12/27 14:33 Order name: Basic Metabolic Panel; Complete Time: 15:10 sb4 12/27 14:33 Order name: CBC with Diff; Complete Time: 14:56 sb4 12/27 14:33 Order name: Hepatic Function; Complete Time: 15:10 sb4 12/27 14:33 Order name: High Sensitivity Troponin; Complete Time: 15:10 sb4 12/27 14:33 Order name: Magnesium; Complete Time: 15:10 sb4 12/27 14:33 Order name: Protime (+inr); Complete Time: 14:57 sb4 12/27 14:33 Order name: Ptt, Activated; Complete Time: 14:57 sb4 12/27 14:45 Order name: Glucose, Ancillary Testing; Complete Time: 14:47 EDMS 12/27 15:29 Order name: CREATININE WHOLE BLOOD; Complete Time: 15:32 EDMS 12/27 14:33 Order name: CT Head Angio; Complete Time: 15:10 sb4 12/27 14:33 Order name: CT Neck Angio; Complete Time: 15:10 sb4 12/27 14:33 Order name: CT Stroke Brain w/o Contrast; Complete Time: 14:51 sb4 12/27 14:33 Order name: Stroke CXR 1 View; Complete Time: 15:22 sb4 12/27 14:33 Order name: Accucheck; Complete Time: 15:04 sb4 12/27 14:33 Order name: Cardiac monitoring; Complete Time: 15:04 sb4 12/27 14:33 Order name: EKG - Nurse/Tech; Complete Time: 15:04 sb4 12/27 14:33 Order name: IV Saline Lock; Complete Time: 15:05 sb4 12/27 14:33 Order name: Labs collected and sent; Complete Time: 15:05 sb4 12/27 14:33 Order name: NPO; Complete Time: 15:05 sb4 12/27 14:33 Order name: O2 Per Protocol; Complete Time: 15:05 sb4 12/27 14:33 Order name: O2 Sat Monitoring; Complete Time: 15:05 sb4 12/27 14:33 Order name: Stroke Swallow Screen; Complete Time: 15:05 sb4 Administered Medications: No medications were administered Point of Care Testing: Blood Glucose: 14:25 Blood Glucose: 92 mg/dL; db Ranges: Critical Glucose Levels:Adult <50 mg/dl or >400 mg/dl <40 mg/dl or >180 mg/dl Disposition Summary: 12/28/23 15:52 Hospitalization Ordered Notes: Hospitalization Status: Observation sb4 Provider: Eugenio Quintana4 Location: Telemetry/MedSurg (observation) sb4 Condition: Fair sb4 Problem: new sb4 Symptoms: have improved sb4 Bed/Room Type: Standard sb4 Room Assignment: 204(12/28/23 17:13) dw Diagnosis - Other transient cerebral ischemic attacks and related syndromes sb4 Forms: - Medication Reconciliation Form sb4 - SBAR form sb4 - Leadership Thank You Letter sb4 NIH Stroke Scale - NIH Stroke Score Date: 12/28/2023 Time: 14:49 Total Score = 0 10. Dysarthria (speech clarity - read or repeat words) - 0(Normal) 11. Extinction and Inattention (visual/tactile/auditory/spatial/personal) - 0(No abnormality) 1a. Level of Consciousness (LOC) - 0(Alert) 1b. Level of Consciousness (LOC) (Month \T\ Age) - 0(Both) 1c. LOC Commands (Open \T\ Closes Eyes/Seed Buyer) - 0(Both) 2. Best Gaze (Lateral Gaze Paresis) - 0(Normal) 3. Visual Field Loss - 0(No visual loss) 4. Facial Palsy - 0(Normal) 5a. Left Arm: Motor (10-second hold) - 0(No drift) 5b. Right Arm: Motor (10-second hold) - 0(No drift) 6a. Left Leg: Motor (5-second hold - always test supine) - 0(No drift) 6b. Right Leg: Motor (5-second hold - always test supine) - 0(No drift) 7. Limb Ataxia (finger/nose \T\ heel/delgadillo - test with eyes open) - 0(Absent) 8. Sensory Loss (pinprick arms/legs/face) - 0(Normal) 9. Best Language: Aphasia (description/naming/reading) - 0(No aphasia) Initials: sb4 NIH Stroke Scale - NIH Stroke Score Date: 12/28/2023 Time: 14:50 Total Score = 1 10. Dysarthria (speech clarity - read or repeat words) - 0(Normal) 11. Extinction and Inattention (visual/tactile/auditory/spatial/personal) - 0(No abnormality) 1a. Level of Consciousness (LOC) - 0(Alert) 1b. Level of Consciousness (LOC) (Month \T\ Age) - 0(Both) 1c. LOC Commands (Open \T\ Closes Eyes/Seed Buyer) - 0(Both) 2. Best Gaze (Lateral Gaze Paresis) - 0(Normal) 3. Visual Field Loss - 0(No visual loss) 4. Facial Palsy - 1(Minor Paralysis) 5a. Left Arm: Motor (10-second hold) - 0(No drift) 5b. Right Arm: Motor (10-second hold) - 0(No drift) 6a. Left Leg: Motor (5-second hold - always test supine) - 0(No drift) 6b. Right Leg: Motor (5-second hold - always test supine) - 0(No drift) 7. Limb Ataxia (finger/nose \T\ heel/delgadillo - test with eyes open) - 0(Absent) 8. Sensory Loss (pinprick arms/legs/face) - 0(Normal) 9. Best Language: Aphasia (description/naming/reading) - 0(No aphasia) Initials: tl4 NIH Stroke Scale - NIH Stroke Score Date: 12/28/2023 Time: 15:00 Total Score = 1 10. Dysarthria (speech clarity - read or repeat words) - 0(Normal) 11. Extinction and Inattention (visual/tactile/auditory/spatial/personal) - 0(No abnormality) 1a. Level of Consciousness (LOC) - 0(Alert) 1b. Level of Consciousness (LOC) (Month \T\ Age) - 0(Both) 1c. LOC Commands (Open \T\ Closes Eyes/Seed Buyer) - 0(Both) 2. Best Gaze (Lateral Gaze Paresis) - 0(Normal) 3. Visual Field Loss - 0(No visual loss) 4. Facial Palsy - 1(Minor Paralysis) 5a. Left Arm: Motor (10-second hold) - 0(No drift) 5b. Right Arm: Motor (10-second hold) - 0(No drift) 6a. Left Leg: Motor (5-second hold - always test supine) - 0(No drift) 6b. Right Leg: Motor (5-second hold - always test supine) - 0(No drift) 7. Limb Ataxia (finger/nose \T\ heel/delgadillo - test with eyes open) - 0(Absent) 8. Sensory Loss (pinprick arms/legs/face) - 0(Normal) 9. Best Language: Aphasia (description/naming/reading) - 0(No aphasia) Initials: es3 NIH Stroke Scale - NIH Stroke Score Date: 12/28/2023 Time: 17:00 Total Score = 0 10. Dysarthria (speech clarity - read or repeat words) - 0(Normal) 11. Extinction and Inattention (visual/tactile/auditory/spatial/personal) - 0(No abnormality) 1a. Level of Consciousness (LOC) - 0(Alert) 1b. Level of Consciousness (LOC) (Month \T\ Age) - 0(Both) 1c. LOC Commands (Open \T\ Closes Eyes/Seed Buyer) - 0(Both) 2. Best Gaze (Lateral Gaze Paresis) - 0(Normal) 3. Visual Field Loss - 0(No visual loss) 4. Facial Palsy - 0(Normal) 5a. Left Arm: Motor (10-second hold) - 0(No drift) 5b. Right Arm: Motor (10-second hold) - 0(No drift) 6a. Left Leg: Motor (5-second hold - always test supine) - 0(No drift) 6b. Right Leg: Motor (5-second hold - always test supine) - 0(No drift) 7. Limb Ataxia (finger/nose \T\ heel/delgadillo - test with eyes open) - 0(Absent) 8. Sensory Loss (pinprick arms/legs/face) - 0(Normal) 9. Best Language: Aphasia (description/naming/reading) - 0(No aphasia) Initials: tl4 Addendum: 12/30/2023 06:58 Co-signature as Attending Physician, Jesus Miguel MD I reviewed the patient's rn care provided by the Advanced Practice Provider and agree with the diagnosis and treatment plan. Signatures: Dispatcher [employer] Gricel Perez RN RN dw Nieto, Roman, MD MD rn Benton, Danielle, RN RN db Brown, Sophia, PA-C PA-C 4 [facility] hospitalJoao RN RN tl4 Corrections: (The following items were deleted from the chart) 12/27 14:33 14:33 BASIC METABOLIC PANEL+C.LAB.BRZ ordered. EDMS EDMS 14:33 14:33 CBC+H.LAB.BRZ ordered. EDMS EDMS 14:33 14:33 HEPATIC FUNCTION+C.LAB.BRZ ordered. EDMS EDMS 14:33 14:33 Troponin High Sensitivity+C.LAB.BRZ ordered. EDMS EDMS 14:33 14:33 MAGNESIUM+C.LAB.BRZ ordered. EDMS EDMS 14:33 14:33 PROTIME (+INR)+COAG.LAB.BRZ ordered. EDMS EDMS 14:33 14:33 PTT, ACTIVATED+COAG.LAB.BRZ ordered. EDMS EDMS 14:33 14:33 Head Angio+CT.RAD.BRZ ordered. EDMS EDMS 14:34 14:34 Neck Angio+CT.RAD.BRZ ordered. EDMS EDMS 14:34 14:34 CT-STROKE BRAIN W/O CONTRAST+CT.RAD.BRZ ordered. EDMS EDMS 14:34 14:34 Chest Single View+RAD.RAD.BRZ ordered. EDMS EDMS 14:50 14:33 NIHSS Score: 1 sb4 sb4 17:13 15:52 sb4 dw
--- NOTE | 2023-12-28 15:53 | ER ---
Nurse's Notes [facility] Name: aLmar Hinton Age: 68 yrs Sex: Male : 1955 Arrival Date: 12/28/2023 Time: 14:13 Bed 5 Private MD: COLEEN WHITTINGTON Diagnosis: Other transient cerebral ischemic attacks and related syndromes Presentation: 12/27 14:25 Chief complaint: Patient states: DIZZINESS STARTED 30 MIN AGO. STATES ALL OF A SUDDEN db WAS MOVING SIDEWAYS. BLURRY VISION. Coronavirus screen: Client denies travel out of the [place] in the last 14 days. At this time, the client does not indicate any symptoms associated with coronavirus-19. Ebola Screen: Patient negative for fever greater than or equal to 101.5 degrees Fahrenheit, and additional compatible Ebola Virus Disease symptoms Patient denies exposure to infectious person. Patient denies travel to an Ebola-affected area in the 21 days before illness onset. No symptoms or risks identified at this time. 14:25 Method Of Arrival: Ambulatory db 14:25 Initial Sepsis Screen: Does the patient meet any 2 criteria? No. Patient's initial db sepsis screen is negative. Does the patient have a suspected source of infection? No. Patient's initial sepsis screen is negative. Risk Assessment: Do you want to hurt yourself or someone else? Patient reports no desire to harm self or others. Onset of symptoms was December 28, 2023. 14:25 Acuity: LIAM 2 db 14:33 An acute neurological deficit is present. The charge nurse has been notified. The db patient has been moved to a treatment area. The patients blood glucose was checked before arriving to the hospital and was found to be normal. Triage Assessment: 14:25 General: Appears in no apparent distress. comfortable, Behavior is calm, cooperative. db Pain: Denies pain. EENT: No deficits noted. Neuro: Level of Consciousness is awake, alert, obeys commands, Oriented to person, place, time, situation, Reports blurred vision dizziness, since 30 MIN. Respiratory: Airway is patent Respiratory effort is even, unlabored, Respiratory pattern is regular, symmetrical. 14:33 The onset of the patients symptoms was December 28, 2023 at 14:00. db Stroke Activation: Symptom onset < 3 hours Physician: Stroke Attending; Name: ; Notified At: ; Arrived At: Physician: Chief Stroke Resident; Name: ; Notified At: ; Arrived At: Physician: Stroke Resident; Name: ; Notified At: ; Arrived At: Physician: ED Attending; Name: ; Notified At: ; Arrived At: Physician: ED Resident; Name: ; Notified At: ; Arrived At: Historical: - Allergies: 14:31 No Known Allergies; db - Home Meds: 15:56 metoprolol tartrate 25 mg Oral tablet 1 tabs daily [Active]; benazepril 40 mg oral tl4 tablet 1 tab daily [Active]; simvastatin 10 mg Oral tablet 1 tab daily [Active]; sotalol 80 mg Oral tablet 1 tab 2 times per day [Active]; Eliquis 5 mg oral tablet 1 tab 2 times per day [Active]; magnesium oxide 200 mg magnesium Oral tablet 1 tab daily [Active]; Zyrtec 10 mg Oral tablet 1 tab daily [Active]; Centrum oral [Active]; - PMHx: 14:44 Hypertensive disorder; Atrial fibrillation; sb4 - PSHx: 14:31 BILAT KNEE REPLACEMENTS; db - Infectious Disease History:: Denies. - Social history:: Smoking status: Patient denies any tobacco usage or history of. Screenin:00 VAN Screening: Arm Drift: Patient shows no arm weakness. Patient is VAN negative. es3 Visual Disturbance: No visual disturbance noted. Aphasia: No aphasia noted. Neglect: No neglect noted. 15:02 Reubens Swallow Protocol Exclusion Criteria: Exclusion Criteria Result: Proceed Brief es3 Cognitive Screen What is your name? Normal, Where are you right now? Normal, Oral Mechanism Examination Facial Symmetry: Normal, Motion: Normal, Lip Closure: Normal, Oral Mechanism Result: Normal. 3 oz Water Swallow Challenge: Pt able to drink all water without stopping, coughing, choking or throat clearing: Yes Result: PASS Notified: Adela Lopez PA-C. 17:49 [facility] ED Fall Risk Assessment (Adult) History of falling in the last 3 months, tl4 including since admission No falls in past 3 months (0 pts) Confusion or Disorientation No (0 pts) Intoxicated or Sedated No (0 pts) Impaired Gait No (0 pts) Mobility Assist Device Used No (0 pt) Altered Elimination No (0 pt) Score/Fall Risk Level 0 - 2 = Low Risk Oriented to surroundings, Maintained a safe environment, Educated pt \\T\\ family on fall prevention, incl call for assistance when getting out of bed, Assessed \\T\\ reinforced patient's understanding of fall precautions, Hourly rounding (assess needs \\T\\ fall precautionary measures) done, Used ambulatory aids as needed (educated on \\T\\ assisted with), Used gait belt as appropriate. Abuse screen: Denies threats or abuse. Denies injuries from another. Nutritional screening: No deficits noted. Tuberculosis screening: No symptoms or risk factors identified. Assessment: 14:50 VAN Scoring: Arm Drift: Patients demonstrates NO arm weakness. Patient is VAN Negative. tl4 14:53 Reubens Swallow Protocol Exclusion Criteria: Exclusion Criteria Result: Proceed Brief tl4 Cognitive Screen What is your name? Normal, Where are you right now? Normal, What year is it? Normal. Oral Mechanism Examination Facial Symmetry: Normal, Motion: Normal, Lip Closure: Normal, Oral Mechanism Result: Normal. 3 oz Water Swallow Challenge: Pt able to drink all water without stopping, coughing, choking or throat clearing: Yes Result: PASS Notified: Adela Lopez PA-C. TNKase (Tenecteplase) Screening: Contraindications: Is the patient on Aspirin, Heparin, or Warfarin: Yes. 15:00 General: Appears in no apparent distress. Behavior is calm, cooperative. Pain: Denies tl4 pain. Neuro: Level of Consciousness is awake, alert, obeys commands, Oriented to person, place, time, situation, Web Merchant are equal bilaterally Moves all extremities. Full function Gait is steady, Speech is normal, Facial droop on left, Facial symmetry: tongue is midline, Pupils are PERRLA, Intact Reports blurred vision since 1 month ago lightheaded and visual field changes that are now resolved. Cardiovascular: Capillary refill < 3 seconds Patient's skin is warm and dry. Rhythm is sinus rhythm. Respiratory: Airway is patent Respiratory effort is even, unlabored, Respiratory pattern is regular, symmetrical, Breath sounds are clear bilaterally. GI: No signs and/or symptoms were reported involving the gastrointestinal system. : No signs and/or symptoms were reported regarding the genitourinary system. EENT: No signs and/or symptoms were reported regarding the EENT system. Derm: No signs and/or symptoms reported regarding the dermatologic system. Musculoskeletal: No signs and/or symptoms reported regarding the musculoskeletal system. 15:53 Reassessment: Patient and/or family updated on plan of care and expected duration. Pain tl4 level reassessed. Patient is alert, oriented x 3, equal unlabored respirations, skin warm/dry/pink. Pt states he sees "a squiggly line" in his left peripheral field of vision. Pt denies any other complaints or changes in condition at this time. Pt denies any needs. Provider Marj aware and to the bedside of patient for re-evaluation. Family remains at bedside. Will continue to monitor. 16:31 Reassessment: Patient and/or family updated on plan of care and expected duration. Pain tl4 level reassessed. Patient is alert, oriented x 3, equal unlabored respirations, skin warm/dry/pink. Hospitalist at bedside for evaluation. No needs identified at this time. Pt denies any new symptoms. 16:53 Reassessment: Patient and/or family updated on plan of care and expected duration. Pain tl4 level reassessed. Patient is alert, oriented x 3, equal unlabored respirations, skin warm/dry/pink. Pt states "squiggly line" in left peripheral field of vision has resolved. Pt denies any symptoms or complaints. Will continue to monitor. 17:45 Reassessment: Patient and/or family updated on plan of care and expected duration. Pain tl4 level reassessed. Patient is alert, oriented x 3, equal unlabored respirations, skin warm/dry/pink. Pt denies any changes in condition, new symptoms or complaints. Pt updated on status of admission. 18:21 Reassessment: No changes from previously documented assessment. Patient is alert, tl4 oriented x 3, equal unlabored respirations, skin warm/dry/pink. Pt awaiting transport to inpatient bed Patient denies pain at this time. Vital Signs: 14:25 BP 139 / 97; Pulse 57; Resp 18; Temp 98.5(O); Pulse Ox 98% ; Weight 104.33 kg; Height 6 db ft. 0 in. ; 14:45 BP 131 / 79; Pulse 62; Resp 16; Pulse Ox 100% on R/A; Pain 0/10; tl4 15:00 BP 131 / 76; Pulse 59; Resp 21; Pulse Ox 99% on R/A; Pain 0/10; tl4 15:15 BP 122 / 79; Pulse 61; Resp 16; Pulse Ox 99% on R/A; tl4 15:30 BP 137 / 66; Pulse 58; Resp 16; Pulse Ox 97% on R/A; Pain 0/10; tl4 15:45 BP 128 / 68; Pulse 56; Resp 15; Pulse Ox 97% on R/A; tl4 16:00 BP 126 / 80; Pulse 56; Resp 15; Pulse Ox 97% on R/A; tl4 16:15 BP 124 / 74; Pulse 56; Resp 18; Pulse Ox 97% on R/A; Pain 0/10; tl4 16:30 BP 130 / 75; Pulse 56; Resp 17; Pulse Ox 98% on R/A; tl4 16:45 BP 128 / 79; Pulse 56; Resp 15; Pulse Ox 97% on R/A; tl4 17:00 BP 117 / 63; Pulse 57; Resp 17; Pulse Ox 98% on R/A; tl4 17:15 BP 119 / 64; Pulse 57; Resp 17; Pulse Ox 98% on R/A; tl4 17:30 BP 112 / 71; Pulse 57; Resp 17; Temp 98.3(O); Pulse Ox 96% on R/A; Pain 0/10; tl4 17:45 BP 122 / 79; Pulse 57; Resp 16; Pulse Ox 99% on R/A; Pain 0/10; tl4 18:00 BP 115 / 68; Pulse 55; Resp 18; Pulse Ox 97% on R/A; tl4 14:25 Body Mass Index 31.19 (104.33 kg, 182.88 cm) db 14:45 Pain Scale: Adult tl4 15:00 Pain Scale: Adult tl4 15:30 Pain Scale: Adult tl4 16:15 Pain Scale: Adult tl4 17:30 Pain Scale: Adult tl4 17:45 Pain Scale: Adult tl4 Vitals: 14:45 Cardiac Rhythm Assessment Regular Sinus rhythm. tl4 15:45 Cardiac Rhythm Assessment Regular Sinus rhythm. tl4 [place] Coma Score: 14:45 Eye Response: spontaneous(4). Motor Response: obeys commands(6). Verbal Response: tl4 oriented(5). Total: 15. 15:45 Eye Response: spontaneous(4). Motor Response: obeys commands(6). Verbal Response: tl4 oriented(5). Total: 15. NIH Stroke Scale Scores: 14:49 NIHSS Score: 0 sb4 14:50 NIHSS Score: 1 tl4 15:00 NIHSS Score: 1 es3 17:00 NIHSS Score: 0 tl4 ED Course: 14:15 Patient arrived in ED. mr 14:15 COLEEN WHITTINGTON is Private Physician. mr 14:19 [facility] sb4 14:19 Jesus Miguel MD is Attending Physician. sb4 14:31 Triage completed. db 14:32 Arm band placed on Patient placed in an exam room. db 14:40 CT Stroke Brain w/o Contrast In Process Unspecified. EDMS 14:47 CT Head Angio In Process Unspecified. EDMS 14:47 CT Neck Angio In Process Unspecified. EDMS 14:47 Joao Velasco, ELMER is Primary Nurse. tl4 14:49 Initial lab(s) drawn, by me, sent to lab. Inserted saline lock: 20 gauge in left [id number] antecubital area, using aseptic technique. Blood collected. 15:11 Stroke CXR 1 View In Process Unspecified. EDMS 15:52 Eugenio Quintana is Hospitalizing Provider. sb4 17:50 Patient has correct armband on for positive identification. Placed in gown. Bed in low tl4 position. Call light in reach. Side rails up X2. Adult w/ patient. Provided Education on: ED process. Client placed on continuous cardiac and pulse oximetry monitoring. NIBP monitoring applied. women nurse on. Door closed. Noise minimized. Lights dimmed. Moved to private room. Warm blanket given. Pillow given. 17:50 No provider procedures requiring assistance completed. Patient admitted, IV remains in tl4 place. Administered Medications: No medications were administered Medication: 15:07 VIS not applicable for this client. tl4 Point of Care Testing: Blood Glucose: 14:25 Blood Glucose: 92 mg/dL; db Ranges: Outcome: 15:52 Decision to Hospitalize by Provider. sb4 18:36 Admitted to Med/surg accompanied by tech, via wheelchair, room 204, aa5 18:36 Condition: stable 18:36 Instructed on the need for admit, 18:36 Patient left the ED. aa5 NIH Stroke Scale - NIH Stroke Score Date: 12/28/2023 Time: 14:49 Total Score = 0 10. Dysarthria (speech clarity - read or repeat words) - 0(Normal) 11. Extinction and Inattention (visual/tactile/auditory/spatial/personal) - 0(No abnormality) 1a. Level of Consciousness (LOC) - 0(Alert) 1b. Level of Consciousness (LOC) (Month \\T\\ Age) - 0(Both) 1c. LOC Commands (Open \\T\\ Closes Eyes/Health Services Manager) - 0(Both) 2. Best Gaze (Lateral Gaze Paresis) - 0(Normal) 3. Visual Field Loss - 0(No visual loss) 4. Facial Palsy - 0(Normal) 5a. Left Arm: Motor (10-second hold) - 0(No drift) 5b. Right Arm: Motor (10-second hold) - 0(No drift) 6a. Left Leg: Motor (5-second hold - always test supine) - 0(No drift) 6b. Right Leg: Motor (5-second hold - always test supine) - 0(No drift) 7. Limb Ataxia (finger/nose \\T\\ heel/delgadillo - test with eyes open) - 0(Absent) 8. Sensory Loss (pinprick arms/legs/face) - 0(Normal) 9. Best Language: Aphasia (description/naming/reading) - 0(No aphasia) Initials: sb4 NIH Stroke Scale - NIH Stroke Score Date: 12/28/2023 Time: 14:50 Total Score = 1 10. Dysarthria (speech clarity - read or repeat words) - 0(Normal) 11. Extinction and Inattention (visual/tactile/auditory/spatial/personal) - 0(No abnormality) 1a. Level of Consciousness (LOC) - 0(Alert) 1b. Level of Consciousness (LOC) (Month \\T\\ Age) - 0(Both) 1c. LOC Commands (Open \\T\\ Closes Eyes/Health Services Manager) - 0(Both) 2. Best Gaze (Lateral Gaze Paresis) - 0(Normal) 3. Visual Field Loss - 0(No visual loss) 4. Facial Palsy - 1(Minor Paralysis) 5a. Left Arm: Motor (10-second hold) - 0(No drift) 5b. Right Arm: Motor (10-second hold) - 0(No drift) 6a. Left Leg: Motor (5-second hold - always test supine) - 0(No drift) 6b. Right Leg: Motor (5-second hold - always test supine) - 0(No drift) 7. Limb Ataxia (finger/nose \\T\\ heel/delgadillo - test with eyes open) - 0(Absent) 8. Sensory Loss (pinprick arms/legs/face) - 0(Normal) 9. Best Language: Aphasia (description/naming/reading) - 0(No aphasia) Initials: tl4 NIH Stroke Scale - NIH Stroke Score Date: 12/28/2023 Time: 15:00 Total Score = 1 10. Dysarthria (speech clarity - read or repeat words) - 0(Normal) 11. Extinction and Inattention (visual/tactile/auditory/spatial/personal) - 0(No abnormality) 1a. Level of Consciousness (LOC) - 0(Alert) 1b. Level of Consciousness (LOC) (Month \\T\\ Age) - 0(Both) 1c. LOC Commands (Open \\T\\ Closes Eyes/Health Services Manager) - 0(Both) 2. Best Gaze (Lateral Gaze Paresis) - 0(Normal) 3. Visual Field Loss - 0(No visual loss) 4. Facial Palsy - 1(Minor Paralysis) 5a. Left Arm: Motor (10-second hold) - 0(No drift) 5b. Right Arm: Motor (10-second hold) - 0(No drift) 6a. Left Leg: Motor (5-second hold - always test supine) - 0(No drift) 6b. Right Leg: Motor (5-second hold - always test supine) - 0(No drift) 7. Limb Ataxia (finger/nose \\T\\ heel/delgadillo - test with eyes open) - 0(Absent) 8. Sensory Loss (pinprick arms/legs/face) - 0(Normal) 9. Best Language: Aphasia (description/naming/reading) - 0(No aphasia) Initials: es3 NIH Stroke Scale - NIH Stroke Score Date: 12/28/2023 Time: 17:00 Total Score = 0 10. Dysarthria (speech clarity - read or repeat words) - 0(Normal) 11. Extinction and Inattention (visual/tactile/auditory/spatial/personal) - 0(No abnormality) 1a. Level of Consciousness (LOC) - 0(Alert) 1b. Level of Consciousness (LOC) (Month \\T\\ Age) - 0(Both) 1c. LOC Commands (Open \\T\\ Closes Eyes/Health Services Manager) - 0(Both) 2. Best Gaze (Lateral Gaze Paresis) - 0(Normal) 3. Visual Field Loss - 0(No visual loss) 4. Facial Palsy - 0(Normal) 5a. Left Arm: Motor (10-second hold) - 0(No drift) 5b. Right Arm: Motor (10-second hold) - 0(No drift) 6a. Left Leg: Motor (5-second hold - always test supine) - 0(No drift) 6b. Right Leg: Motor (5-second hold - always test supine) - 0(No drift) 7. Limb Ataxia (finger/nose \\T\\ heel/delgadillo - test with eyes open) - 0(Absent) 8. Sensory Loss (pinprick arms/legs/face) - 0(Normal) 9. Best Language: Aphasia (description/naming/reading) - 0(No aphasia) Initials: tl4 Signatures: Dispatcher [employer] EDMO Nick Xochitl, Reg Reg mr AngelCarolina, RN RN aa5 Tita Martinez, RN RN Adela Cerda PAMee PA-Joao Leyva RN RN tl4 Isela Dorsey, ELMER RN es3 Chintan Enciso [id number] Corrections: (The following items were deleted from the chart) 14:31 14:25 Pulse 57bpm; Resp 18bpm; Pulse Ox 98%; Temp 98.5F Oral; db db 14:33 14:25 BP 139 / 97; Pulse 57bpm; Resp 18bpm; Pulse Ox 98%; Temp 98.5F Oral; db db
--- NOTE | 2023-12-28 17:18 | P.HP ---
Certification for Inpatient Patient admitted to: Observation With expected LOS: <2 Midnights Practitioner: I am a practitioner with admitting privileges, knowledge of patient current condition, hospital course, and medical plan of care. Services: Services provided to patient in accordance with Admission requirements found in Title 42 Section 412.3 of the Code of Federal Regulations Patient History Date of Service: 12/28/23 Reason for admission: TIA/CVA History of Present Illness: Patient is a 68-year-old male with a past medical history of hypertension, hyperlipidemia, atrial fibrillation who presented to the ED with complaints of lightheadedness and blurry vision. He reports that since he was started on metoprolol ~ 2 months ago he has been having some days where he experiences dizziness + blurry vision intermittently. He decided to come to the ED to be checked out. No focal deficits noted on exam. No blurry vision on exam. Patient denies any palpitations. Heart rate 57, blood pressure 131/79. ED provider wishes to admit for observation for TIA possible CVA. CTA neck: No significant flow abnormality of the neck vessels is identified. CTA Head: No significant flow abnormality is detected. CT brain: No acute intracranial abnormality XR chest: No acute intrathoracic process suspected. Allergies No Known Allergies Allergy (Verified 04/20/23 13:15) Home medications list reviewed: Yes Home Medications: Amlodipine Besylate/Benazepril [Lotrel 10-40 mg Capsule] 1 each PO DAILY 01/17/22 Apixaban [Eliquis] 5 mg PO BID 01/17/22 Lactobacillus Acidophilus [Probiotic] 1 each PO DAILY 01/17/22 Simvastatin 10 mg PO DAILY 01/17/22 Cetirizine HCl [Zyrtec] 10 mg PO DAILY 04/20/23 Flaxseed Oil 1,000 mg PO DAILY 04/20/23 Magnesium [Magnesium Gluconate] 200 mg PO DAILY 04/20/23 Multivit-Min/FA/Lycopen/Lutein [Centrum Silver Tablet] 1 each PO DAILY 04/20/23 Sotalol HCl [Betapace*] 80 mg PO BID 30 Days #60 tab 04/27/23 - Past Medical/Surgical History Diabetic: No -: atrial fibrillation -: hypertension -: arthritis -: hyperlipidemia -: left knee arthroplasty -: cholecystectomy -: left apa 2001 - Family History Father -: Heart disease, Cancer, Other (see notes) Notes: colon cancer, prostate cancer Mother -: Other (see notes) Notes: glaucoma - Social History Alcohol use: No CD- Drugs: No Caffeine use: No Review of Systems 10-point ROS is otherwise unremarkable General: Unremarkable Eyes: Unremarkable ENT: Unremarkable Respiratory: Unremarkable Gastrointestinal: Unremarkable Genitourinary: Unremarkable Musculoskeletal: Unremarkable Integumentary: Unremarkable Neurological: Unremarkable Physical Examination - Studies Laboratory Data (last 24 hrs) 12/28/23 12/28/23 12/28/23 14:40 14:40 14:40 WBC 6.00 Hgb 14.4 Hct 42.7 Plt Count 237 PT 12.6 H INR 1.15 APTT 35.2 Sodium 136 Potassium 4.4 BUN 21 H Creatinine 1.08 Glucose 98 Magnesium 2.3 Total Bilirubin 0.6 AST 15 ALT 26 Alkaline Phosphatase 78 Assessment and Plan - Plan Problem list TIA / CVA Atrial fibrillation Hypertension Hyperlipidemia TIA / CVA - Obtain MRI - Echocardiogram - Antiplatelet therapy and statin therapy: resume home eliquis and simvastatin once dosing verified - Physical therapy / occupational therapy - Neuro checks q4h. NIH stroke scale every shift - DVT prophylaxis - He reports that since he was started on metoprolol ~ 2 months ago he has been having some days where he experiences dizziness + blurry vision intermittently. He decided to come to the ED to be checked out. No focal deficits noted on exam. No blurry vision on exam. - continue home statin - continue home eliquis CTA neck: No significant flow abnormality of the neck vessels is identified. CTA Head: No significant flow abnormality is detected. CT brain: No acute intracranial abnormality XR chest: No acute intrathoracic process suspected. Atrial fibrillation Hypertension Hyperlipidemia -Resume home meds once dosing verified -Patient reports being on metoprolol, sotalol, benazepril, Eliquis, simvastatin -Telemetry monitoring -Monitor vitals Dispo: home <24h resume eliquis Full code - Advance Directives Does patient have a Living Will: No Does patient have a Durable POA for Healthcare: No Time Spent Managing Pts Care (In Minutes): 55
[2023-12-28] MEDS: ASPIRIN 325 MG TAB PO ONE ×2 (17:35→22:09)
[2023-12-28 19:32] VITALS: O2SAT 97
[2023-12-28] MEDS: APIXABAN 5 MG TABLET PO SCH (20:28)
[2023-12-28] MEDS: SOTALOL HCL 80 MG TAB PO SCH (20:28)
[2023-12-28 20:54] VITALS: BMI 31.1
[2023-12-29] MEDS: BENAZEPRIL 20 MG TAB PO SCH (09:00)
[2023-12-29] MEDS: ATORVASTATIN 10 MG TAB PO SCH (09:00)
[2023-12-29] MEDS: MAGNESIUM OXIDE 400 MG TAB PO SCH (09:49)
[2023-12-29 10:03] LABS: Albumin/Globulin Ratio 1.3 (1.1-1.8); Anion Gap 8.3 mEq/L (5.0-15.0); Globulin 3.2 g/dL (2.3-3.5); Magnesium 2.3 mg/dL (1.6-2.4); Phosphorus 3.4 mg/dL (2.5-4.9); Potassium 4.3 mEq/L (3.5-5.1); Protein, Total 7.2 g/dL (6.4-8.2)
[2023-12-29 10:05] LABS: Absolute Eosinophils 0.1 K/uL (0-0.5); Absolute Lymphocytes (CBC) 1.3 K/uL (0.7-4.9); Absolute Monocytes 0.5 K/uL (0.1-1.3); Absolute Neutrophil 3.2 K/uL (1.8-8.0); Basophils % 0.5 % (0-1.3); Eosinophils % 2.9 % (0-4.4); Hematocrit 42.5 % (39.6-49.0); Lymphocytes % 24.7 % (15.3-44.8); MCH 30.6 pg (27.0-35.0); MCHC 33.1 g/dL (32.0-36.0); MCV 92.6 fL (80-100); MPV 8.9 fL (7.6-11.3); Monocytes % 10.4 % (3.3-12.3); Neutrophils % 61.5 % (41.7-73.7); Platelets 232 thou/uL (152-406); RBC Red Blood Cell Count 4.59 M/uL (4.33-5.43); Red Cell Distribution Width 13.6 % (12.1-15.2)
--- NOTE | 2023-12-29 10:23 | RAD REPORT ---
EXAM DESCRIPTION: MRI - Brain Wo Cont - 12/29/2023 10:16 am CLINICAL HISTORY: R/O CVA Headache, drowsiness, CVA symptomology COMPARISON: Head angio dated 12/28/2023 TECHNIQUE: Multi-sequence, multiplanar MR imaging of the brain was performed without contrast. FINDINGS: No intracranial hemorrhage, hydrocephalus or extra-axial fluid collections. No edema or sh ift of midline structures. No findings to suspect brain mass. DWI is negative for acute CVA. Midline structures are normally formed. Mastoid air cells and paranasal sinuses are clear. IMPRESSION: Negative for acute CVA or other acute intracranial finding.
--- NOTE | 2023-12-29 14:38 | EKG ---
Test Date: 2023-12-28 Test Time: 14:53:45 Analysis Manager: BURTON MEASUREMENT RESULTS: Intervals: Rate: 60 MS: 132 QRSD: 88 QT: 462 QTc: 462 [place]: P: 59 MS: 132 QRS: 2 T: 38 INTERPRETIVE STATEMENTS: Normal sinus rhythm Low voltage QRS Borderline ECG Compared to ECG 04/27/2023 17:47:10 Atrial fibrillation no longer present Ventricular premature complex(es) no longer present T-wave abnormality no longer present Electronically Signed On 12-29-23 14:35:45 CDT by Liam Williamson
--- NOTE | 2023-12-29 19:19 | P.DS ---
Admission Date: 12/28/23 Discharge Date: 12/29/23 Disposition: ROUTINE DISCHARGE Discharge Condition: GOOD Reason for Admission: TIA/CVA Brief History of Present Illness: Patient is a 68-year-old male with a past medical history of hypertension, hyperlipidemia, atrial fibrillation who presented to the ED with complaints of lightheadedness and blurry vision. He reports that since he was started on metoprolol ~ 2 months ago he has been having some days where he experiences dizziness + blurry vision intermittently. He decided to come to the ED to be checked out. No focal deficits noted on exam. No blurry vision on exam. Patient denies any palpitations. Heart rate 57, blood pressure 131/79. ED provider wishes to admit for observation for TIA possible CVA. Hospital Course: Patient was admitted to the hospital with chief complaint of lightheadedness, blurry vision. He reports he been having intermittent/episodic symptoms since he started metoprolol about 2 months ago, he also takes sotalol at home for atrial fibrillation. Patient reported that his heart rate had been in the high 40s to 50s at home and blood pressure around 90s to 100 systolic since he started taking the metoprolol as well as the sotalol. He was admitted and evaluated for possible CVA/TIA, MRI of the brain was performed without contrast which was negative for CVA or other acute findings, CTA of the head and neck were also obtained which were negative for acute findings. High sensitive troponin was negative, patient symptoms improved during hospitalization, discussed his current medication regiment with cardiology who recommends discontinuing metoprolol and continuing other home medications as prescribed. Please stop taking/discontinue your metoprolol Continue taking other home occasions as prescribed Follow-up with your primary care doctor and cardiology in 1 to 2 weeks Problem list Dizziness/lightheadedness Bradycardia Atrial fibrillation on chronic anticoagulation therapy Hypertension Hyperlipidemia Vital Signs/Physical Exam: Temp Pulse Resp BP Pulse Ox 97 F 50 15 140/65 96 12/29/23 10:31 12/29/23 10:31 12/29/23 10:31 12/29/23 10:12/29/23 10:31 General: Alert, In no apparent distress, Oriented x3 HEENT: Atraumatic, PERRLA Neck: Supple, JVD not distended Respiratory: Clear to auscultation bilaterally, Normal air movement Cardiovascular: Regular rate/rhythm, Normal S1 S2 Gastrointestinal: Normal bowel sounds, No tenderness Musculoskeletal: No tenderness Integumentary: No rashes Neurological: Normal speech, Normal tone, Normal affect Laboratory Data at Discharge: WBC 5.20 thou/uL (4.3-10.9) 12/29/23 06:48 Hgb 14.0 g/dL (13.6-17.9) 12/29/23 06:48 Hct 42.5 % (39.6-49.0) 12/29/23 06:48 Plt Count 232 thou/uL (152-406) 12/29/23 06:48 PT 12.6 SECONDS (9.5-12.5) H 12/28/23 14:40 INR 1.15 12/28/23 14:40 APTT 35.2 SECONDS (24.3-36.9) 12/28/23 14:40 Sodium 139 mEq/L (136-145) 12/29/23 06:48 Potassium 4.3 mEq/L (3.5-5.1) 12/29/23 06:48 BUN 14 mg/dL (7-18) 12/29/23 06:48 Creatinine 0.88 mg/dL (0.70-1.30) 12/29/23 06:48 Glucose 97 mg/dL (74-106) 12/29/23 06:48 Phosphorus 3.4 mg/dL (2.5-4.9) 12/29/23 06:48 Magnesium 2.3 mg/dL (1.6-2.4) 12/29/23 06:48 Total Bilirubin 1.0 mg/dL (0.2-1.0) 12/29/23 06:48 AST 13 U/L (15-37) L 12/29/23 06:48 ALT 24 U/L (16-61) 12/29/23 06:48 Alkaline Phosphatase 64 U/L (45-117) 12/29/23 06:48 Triglycerides 61 mg/dL (<150) 12/29/23 06:48 Cholesterol 131 mg/dL (<200) 12/29/23 06:48 HDL Cholesterol 40 mg/dL (40-60) 12/29/23 06:48 Cholesterol/HDL Ratio 3.28 12/29/23 06:48 Home Medications: Apixaban [Eliquis] 5 mg PO BID 01/17/22 Simvastatin 10 mg PO DAILY 01/17/22 Magnesium [Magnesium Gluconate] 200 mg PO DAILY 04/20/23 Sotalol HCl [Betapace*] 80 mg PO BID 30 Days #60 tab 04/27/23 Benazepril HCl 40 mg PO DAILY 12/28/23 Physician Discharge Instructions: Patient was admitted to the hospital with chief complaint of lightheadedness, blurry vision. He reports he been having intermittent/episodic symptoms since he started metoprolol about 2 months ago, he also takes sotalol at home for atrial fibrillation. Patient reported that his heart rate had been in the high 40s to 50s at home and blood pressure around 90s to 100 systolic since he started taking the metoprolol as well as the sotalol. He was admitted and evaluated for possible CVA/TIA, MRI of the brain was performed without contrast which was negative for CVA or other acute findings, CTA of the head and neck were also obtained which were negative for acute findings. High sensitive troponin was negative, patient symptoms improved during hospitalization, discussed his current medication regiment with cardiology who recommends discontinuing metoprolol and continuing other home medications as prescribed. Please stop taking/discontinue your metoprolol Continue taking other home occasions as prescribed Follow-up with your primary care doctor and cardiology in 1 to 2 weeks Diet: AHA Activity: Ad reyna Followup: Kacey Vásquez NP [Primary Care Provider] - 1-2 Weeks Liam Williamson MD [ACTIVE - CAN ADMIT] - 1-2 Weeks Time spent managing pt's care (in minutes): 30
[2023-12-30 14:35] VITALS: BP 140/65; TEMP 97
== END 2023-12-29 12:42 | disposition home or self-care (01) ==
LOC: ER 14:13 → ERHOLD 17:06 → 2ND 17:45
PROVIDERS: ADMIT Internal Medicine; ATTEND Internal Medicine
DX: R42 Dizziness and giddiness (principal); H53.8 Other visual disturbances; I48.91 Unspecified atrial fibrillation; I10 Essential (primary) hypertension; E78.5 Hyperlipidemia, unspecified
CPT/HCPCS: 93005; 85025 ×2; 80048; 36415; 83735 ×2; 84100; 85610; 80061; 82565; 82947; 80076; 85730; 84484; 80053; 70496; 70498; 70450; 71045; 70551; 97116; 97161; 99285; Q9967; G0378 ×3

== ENCOUNTER 2024-09-23 07:19 | Day surgery (SDC) | payer OTHER ==
[2024-09-23 07:52] LABS: Absolute Eosinophils 0.2 K/uL (0-0.5); Absolute Lymphocytes (CBC) 1.3 K/uL (0.7-4.9); Absolute Monocytes 0.6 K/uL (0.1-1.3); Absolute Neutrophil 3.6 K/uL (1.8-8.0); Basophils % 0.3 % (0-1.3); Eosinophils % 3.1 % (0-4.4); Hematocrit 47.1 % (39.6-49.0); Hemoglobin 15.9 g/dL (13.6-17.9); Lymphocytes % 22.7 % (15.3-44.8); MCH 31.2 pg (27.0-35.0); MCHC 33.7 g/dL (32.0-36.0); MCV 92.3 fL (80-100); MPV 7.7 fL (7.6-11.3); Monocytes % 10.4 % (3.3-12.3); Neutrophils % 63.5 % (41.7-73.7); Platelets 263 thou/uL (152-406); Red Cell Distribution Width 13.4 % (12.1-15.2)
[2024-09-23] MEDS: Ringers Lactate 1,000 ML IV ONE (08:05)
[2024-09-23] MEDS ORDERED: LIDOCAINE 1% MPF 5 ML VIAL ONE (08:05)
[2024-09-23] MEDS ORDERED: propofoL 200 MG/20 ML VIAL IV ONE ×2 (08:05→09:25)
[2024-09-23 08:08] LABS: PT Prothrombin Time 12.6 SECONDS (9.4-12.5); PTT, Activated Partial Thromb 31.7 SECONDS (24.3-36.9); Protime INR 1.2
[2024-09-23 08:13] LABS: Anion Gap 9.7 mEq/L (5.0-15.0); Potassium 4.7 mEq/L (3.5-5.1)
[2024-09-23] MEDS ORDERED: EPHEDRINE SULF 50 MG/ML VIAL ONE (09:24)
[2024-09-23] MEDS ORDERED: GLYCOPYRROLATE 0.2 MG/ML SYR ONE (10:14)
[2024-09-23 10:30] VITALS: TEMP 97.2
[2024-09-23 10:31] VITALS: BP 119/82; O2SAT 100
--- NOTE | 2024-09-25 12:35 | EKG ---
Test Date: 2024-09-23 Test Time: 08:45:51 Bookstore Manager: MARLENY MEASUREMENT RESULTS: Intervals: Rate: 52 MA: 136 QRSD: 84 QT: 492 QTc: 457 [place]: P: 52 MA: 136 QRS: -28 T: 35 INTERPRETIVE STATEMENTS: Sinus bradycardia Otherwise normal ECG Compared to ECG 12/28/2023 14:53:45 Sinus rhythm no longer present Electronically Signed On 09-25-24 12:31:54 WASHROOM ATTENDANT by Neel Smith
== END 2024-09-23 10:35 | disposition home or self-care (01) ==
LOC: OR 07:19
PROVIDERS: ATTEND Surgery
PROC: 0DBL8ZX Excision of Transverse Colon, Via Natural or Artificial Opening Endoscopic, Diagnostic (ICD-10-PCS; principal; 2024-09-23 09:00)
DX: Z12.11 Encounter for screening for malignant neoplasm of colon (principal); K64.4 Residual hemorrhoidal skin tags; K64.8 Other hemorrhoids; D12.3 Benign neoplasm of transverse colon
CPT/HCPCS: 85025; 80048; 36415; 85610; 88305; 85730; 45384; J2704 ×2; J2003; J7120; 93005